=== PATIENT | male | born 1935 | race African-American/Black ===

== ENCOUNTER 2018-05-08 07:53 | Inpatient (IN) | payer MEDICARE, OTHER ==
[~2018-05-08] VITALS: Ht 172.7 cm; Wt 59.0 kg
[~2018-05-08 07:53] MED LIST: INSU100C6 SQ; LEVVL SQ
[2018-05-08] MEDS ORDERED: SODIUM CHLORIDE 0.9% 500 ML IV ONE (08:35)
[2018-05-08 08:55] LABS: BASOPHILS % 0.7 % (0.0-2.0); EOSINOPHILS % 5.1 % (0.0-5.0); HEMATOCRIT. 35.1 % (42.0-52.0); HEMOGLOBIN. 10.9 g/dL (14.0-18.0); LYMPHOCYTES % 11.8 % (20.0-50.0); MEAN CORPUSCULAR HEMOGLOBIN 23.8 pg (28.0-32.0); MEAN CORPUSCULAR VOLUME 76.8 fL (80.0-94.0); MEAN PLATELET VOLUME 8.7 fl (7.4-10.4); MONOCYTES % 5.9 % (2.0-8.0); NEUTROPHILS % 76.5 % (40.0-76.0); PLATELET 364 x1000/uL (130-400); RED BLOOD CELL COUNT 4.57 mill/uL (4.7-6.1); RED CELL DISTRIBUTION WIDTH 15.6 % (11.6-14.6)
[2018-05-08 09:01] LABS: CHLORIDE 92 mEq/L (98-107)
[2018-05-08 09:03] LABS: PROTHROMBIN TIME 10.8 sec (9.4-11.6)
[2018-05-08] MEDS ORDERED: SODIUM CHLORIDE 0.9% 1,000 ML IV ONE (10:15)
[2018-05-08] MEDS ORDERED: IOHEXOL-300 100 ML BOTTLE ONE (13:15)
[2018-05-08 13:16] LABS: TOTAL IRON BINDING CAPACITY 214 ug/dL (250-450)
[2018-05-08 17:30] VITALS: BP 136/56
[2018-05-08] MEDS ORDERED: ONDANSETRON HCL 4MG/2ML VIAL IV PRN (18:00)
[2018-05-08] MEDS ORDERED: HYDROCODONE/ACETAMINOPHEN 5/325MG TABLET PO PRN (18:00)
[2018-05-08] MEDS ORDERED: DIPHENHYDRAMINE 50MG/ML VIAL IV PRN (18:00)
[2018-05-08] MEDS ORDERED: DEXTROSE 50% WATER 50ML SYRINGE IV PRN ×2 (18:00→18:15)
[2018-05-08] MEDS ORDERED: ACETAMINOPHEN 650MG SUPP PR PRN (18:00)
[2018-05-08] MEDS ORDERED: CLONIDINE 0.1MG TABLET PO PRN (18:00)
[2018-05-08] MEDS ORDERED: MAGNESIUM/ALUMINUM HYDROXIDE/SIMETHICONE 30ML UDC PO PRN (18:00)
[2018-05-08] MEDS ORDERED: IPRATROPIUM/ALBUTEROL 0.5-3(2.5)MG/3ML NEB INH PRN (18:00)
[2018-05-08] MEDS ORDERED: ACETAMINOPHEN 325MG TABLET PO PRN (18:00)
[2018-05-08] MEDS ORDERED: NA PHOS,M-B/NA PHOS,DI-BA ENEMA 118ML PR PRN (18:00)
[2018-05-08] MEDS: INSULIN LISPRO 100 UNITS/ML SUBCUT SCH ×2 (18:59→22:14)
[2018-05-08 20:00] VITALS: BP 172/61
[2018-05-08] MEDS: SODIUM CHLORIDE 0.9% 1,000 ML IV SCH (20:32)
[2018-05-08] MEDS ORDERED: INSULIN LISPRO 100 UNITS/ML SUBCUT SCH ×2 (21:00)
[2018-05-08] MEDS ORDERED: BLOOD SUGAR DIAGNOSTIC STRIP TEST SCH (21:00)
[2018-05-08] MEDS: BLOOD SUGAR DIAGNOSTIC STRIP TEST SCH (21:00)
[2018-05-08] MEDS: LEVOFLOXACIN 500MG PREMIX 100 ML IV SCH (22:15)
[2018-05-08 23:11] LABS: CLARITY URINE CLEAR (CLEAR); COLOR URINE YELLOW (YELLOW); KETONES URINE TRACE (NEGATIVE); LEUKOCYTE ESTERASE URINE NEGATIVE (NEGATIVE); NITRITE URINE NEGATIVE (NEGATIVE); OCCULT BLOOD URINE NEGATIVE (NEGATIVE); PROTEIN URINE NEGATIVE (NEGATIVE); SPECIFIC GRAVITY URINE 1.033 (1.005-1.030); UROBILINOGEN URINE 0.2 E.U./dL (0.2-1.0)
[2018-05-08 23:22] LABS: *AMPHETAMINES SCREEN URINE NEGATIVE (NEGATIVE); *BARBITURATES SCREEN URINE NEGATIVE (NEGATIVE); *BENZODIAZEPINES SCREEN URINE NEGATIVE (NEGATIVE); *COCAINE SCREEN URINE NEGATIVE (NEGATIVE); METHADONE URINE SCREEN NEGATIVE (NEGATIVE); OPIATES URINE SCREEN NEGATIVE (NEGATIVE); PHENCYCLIDINE URINE SCREEN NEGATIVE (NEGATIVE)
[2018-05-08 23:23] LABS: CANNABINOID URINE SCREEN NEGATIVE (NEGATIVE)
[2018-05-09] VITALS (19 sets, daily range): BP systolic 134–167; BP diastolic 43–83
[2018-05-09] MEDS: BLOOD SUGAR DIAGNOSTIC STRIP TEST SCH ×4 (06:09→21:36)
[2018-05-09 06:54] LABS: BASOPHILS % 0.4 % (0.0-2.0); EOSINOPHILS % 6.3 % (0.0-5.0); HEMATOCRIT. 28.6 % (42.0-52.0); HEMOGLOBIN. 9.1 g/dL (14.0-18.0); LYMPHOCYTES % 14.5 % (20.0-50.0); MEAN CORPUSCULAR HEMOGLOBIN 23.9 pg (28.0-32.0); MONOCYTES % 6.5 % (2.0-8.0); NEUTROPHILS % 72.3 % (40.0-76.0); PLATELET 331 x1000/uL (130-400); RED BLOOD CELL COUNT 3.81 mill/uL (4.7-6.1); RED CELL DISTRIBUTION WIDTH 15.1 % (11.6-14.6)
[2018-05-09 07:04] LABS: CHLORIDE 98 mEq/L (98-107)
[2018-05-09] MEDS: INSULIN LISPRO 100 UNITS/ML SUBCUT SCH ×4 (07:15→21:48)
[2018-05-09 07:32] LABS: HDL CHOLESTEROL 43 mg/dL (40-59)
[2018-05-09 07:33] LABS: LDL CHOLESTEROL 124 mg/dL (5-100)
[2018-05-09] MEDS ORDERED: LIDOCAINE HCL 1% 20ML VIAL (Pyxis) INJ ONE (10:54)
[2018-05-09] MEDS ORDERED: SODIUM BICARBONATE 4% (2.4MEQ) 5ML VIAL IV ONE (10:55)
[2018-05-09] MEDS ORDERED: FENTANYL CITRATE/PF 50MCG/ML 2ML VIAL ONE (10:56)
[2018-05-09] MEDS ORDERED: FENTANYL CITRATE/PF 50MCG/ML 2ML VIAL IV SCH (11:45)
[2018-05-09] MEDS: SODIUM CHLORIDE 0.9% 1,000 ML IV SCH (13:08)
[2018-05-09] MEDS ORDERED: INSULIN GLARGINE UD 100 UNITS/ML SYR SUBCUT SCH ×2 (14:00→22:00)
[2018-05-09 14:35] LABS: BG BASE EXCESS 1.5 mmol/L (-2.0-2.0); BG CARBOXYHEMOGLOBIN 0.8 % (0.5-1.5); BG DEOXYHEMOGLOBIN 3.9 % (0.0-5.0); BG FRACTION INSPIRED OXYGEN 21; BG HCO3 ACT 25.8 mmol/L (22.0-26.0); BG METHEMOGLOBIN 0.3 % (0.0-1.5); BG OXYGEN SATURATION 96.1 % (92.0-98.5); BG PCO2 39.8 mmHg (35.0-45.0); BG PO2 85.4 mmHg (75.0-100.0); BG SAMPLE SITE RIGHT BRACHIAL; BG TOTAL HEMOGLOBIN 10.2 g/dL (12.0-18.0); BG VENT MODE ROOM AIR
[2018-05-09] MEDS ORDERED: INSULIN LISPRO 100 UNITS/ML SUBCUT NR ×3 (17:00→20:00)
[2018-05-10] VITALS: BP 130/49
[2018-05-10] MEDS: SODIUM CHLORIDE 0.9% 1,000 ML IV SCH (01:47)
[2018-05-10 04:00] VITALS: BP 140/48
[2018-05-10] MEDS: BLOOD SUGAR DIAGNOSTIC STRIP TEST SCH ×3 (05:54→17:36)
[2018-05-10 07:03] LABS: CHLORIDE 103 mEq/L (98-107)
[2018-05-10 07:14] LABS: HEMATOCRIT 29.5 % (42.0-52.0); HEMOGLOBIN 9.5 g/dL (14.0-18.0); MEAN CORPUSCULAR VOLUME 74.6 fL (80.0-94.0); PLATELET 328 x1000/uL (130-400); RED BLOOD CELL COUNT 3.95 mill/uL (4.7-6.1); RED CELL DISTRIBUTION WIDTH 15.2 % (11.6-14.6)
[2018-05-10] MEDS: INSULIN LISPRO 100 UNITS/ML SUBCUT SCH ×3 (07:15→17:39)
[2018-05-10 08:00] VITALS: BP 161/58
[2018-05-10] MEDS: LEVOFLOXACIN 500MG PREMIX 100 ML IV SCH (08:35)
[2018-05-10 12:11] VITALS: BP 159/56
[2018-05-10 16:33] VITALS: BP 108/77
[2018-05-10 16:38] VITALS: BP 108/77
== END 2018-05-10 18:10 | disposition home or self-care (01) | DRG 180 ==
LOC: ER 07:53 → INTOOBSV 12:27 → 5WST 12:27 → OBSVTOIN 12:27 → ENRESERV 14:14 → SUPCPDRO 14:27
PROVIDERS: ADMIT Internal Medicine; ATTEND Internal Medicine
PROC: 0BBC3ZX Excision of Right Upper Lung Lobe, Percutaneous Approach, Diagnostic (ICD-10-PCS; principal; 2018-05-09)
DX: C34.11 Malignant neoplasm of upper lobe, right bronchus or lung (principal); E43 Unspecified severe protein-calorie malnutrition; E87.1 Hypo-osmolality and hyponatremia; I50.32 Chronic diastolic (congestive) heart failure; N39.0 Urinary tract infection, site not specified; Z68.1 Body mass index [BMI] 19.9 or less, adult; E11.40 Type 2 diabetes mellitus with diabetic neuropathy, unspecified; E11.649 Type 2 diabetes mellitus with hypoglycemia without coma; E11.65 Type 2 diabetes mellitus with hyperglycemia; E86.0 Dehydration; R33.9 Retention of urine, unspecified; I11.0 Hypertensive heart disease with heart failure; R62.7 Adult failure to thrive; Z91.19 Patient's noncompliance with other medical treatment and regimen; Z89.612 Acquired absence of left leg above knee; Z89.611 Acquired absence of right leg above knee; Z79.4 Long term (current) use of insulin; Z87.891 Personal history of nicotine dependence
CPT/HCPCS: 32405; 36415; 36600; 71045; 71260; 74176; 77012; 80048; 80053; 80061; 80305; 81003; 82375; 82805; 82962; 83036; 83540; 83550; 83880; 83930; 84145; 84443; 84484; 85025; 85027; 85610; 87040; 87086; 88305; 93005; 93306; 93970; 96360; 96361; 99285; A6261; C1893; J1815; J1956; J3010; J3490; J7030; J7040; Q9967; A4315

== ENCOUNTER 2018-07-11 23:11 | Inpatient (IN) | payer OTHER ==
[~2018-07-11] VITALS: Ht 172.7 cm; Wt 57.9 kg
[2018-07-11] MEDS ORDERED: DEXTROSE 50% WATER 50ML SYRINGE IV ONE ×2 (23:19→23:22)
[2018-07-11] MEDS ORDERED: SODIUM CHLORIDE 0.9% 1,000 ML IV ONE (23:20)
[2018-07-11 23:59] LABS: HEMATOCRIT. 31.4 % (42.0-52.0); MEAN CORPUSCULAR VOLUME 75.6 fL (80.0-94.0); MEAN PLATELET VOLUME 8.4 fl (7.4-10.4); PLATELET 339 x1000/uL (130-400); RED BLOOD CELL COUNT 4.15 mill/uL (4.7-6.1); RED CELL DISTRIBUTION WIDTH 15.9 % (11.6-14.6)
[2018-07-12] VITALS (8 sets, daily range): BP systolic 132–165; BP diastolic 39–80
[2018-07-12 00:06] LABS: CHLORIDE 94 mEq/L (98-107)
[2018-07-12 00:09] LABS: INR 1.1; PROTHROMBIN TIME 10.6 sec (9.1-11.1)
[2018-07-12 00:12] LABS: CLARITY URINE CLOUDY (CLEAR); COLOR URINE YELLOW (YELLOW); KETONES URINE NEGATIVE (NEGATIVE); LEUKOCYTE ESTERASE URINE 2+ (NEGATIVE); NITRITE URINE POSITIVE (NEGATIVE); OCCULT BLOOD URINE TRACE (NEGATIVE); PH URINE 5.5 (4.5-8.0); PROTEIN URINE TRACE (NEGATIVE); SPECIFIC GRAVITY URINE 1.021 (1.005-1.030)
[2018-07-12] MEDS ORDERED: SODIUM CHLORIDE 0.9% 1,000 ML IV ONE ×2 (00:27→02:54)
[2018-07-12] MEDS ORDERED: LEVOFLOXACIN 750MG PREMIX 150 ML IV ONE (00:30)
[2018-07-12] MEDS ORDERED: DEXTROSE 50% WATER 50ML SYRINGE IV ONE ×3 (02:00→08:46)
[2018-07-12 02:03] LABS: ATYPICAL LYMPHOCYTES 1; PLATELET ESTIMATE NORMAL
[2018-07-12] MEDS ORDERED: DEXTROSE 50% WATER 50ML SYRINGE IV PRN ×2 (10:15)
[2018-07-12] MEDS ORDERED: HYDROCODONE/ACETAMINOPHEN 5/325MG TABLET PO PRN (10:15)
[2018-07-12] MEDS ORDERED: IPRATROPIUM/ALBUTEROL 0.5-3(2.5)MG/3ML NEB HHN PRN (10:15)
[2018-07-12] MEDS ORDERED: ONDANSETRON 4MG ODT PO PRN (10:15)
[2018-07-12] MEDS ORDERED: ACETAMINOPHEN 650MG SUPP PR PRN (10:15)
[2018-07-12] MEDS ORDERED: DEXT 5%/0.9% NACL 1,000 ML IV SCH (10:15)
[2018-07-12] MEDS ORDERED: BLOOD SUGAR DIAGNOSTIC STRIP TEST SCH (10:15)
[2018-07-12] MEDS ORDERED: ACETAMINOPHEN 325MG TABLET PO PRN ×2 (10:15)
[2018-07-12 11:32] LABS: BG DEOXYHEMOGLOBIN 3.6 % (0.0-5.0); BG FRACTION INSPIRED OXYGEN 21; BG HCO3 ACT 23.4 mmol/L (22.0-26.0); BG METHEMOGLOBIN 0.3 % (0.0-1.5); BG OXYGEN SATURATION 96.4 % (92.0-98.5); BG OXYHEMOGLOBIN 96.1 % (94.0-97.0); BG PCO2 37.6 mmHg (35.0-45.0); BG PH 7.412 (7.350-7.450); BG PO2 86.3 mmHg (75.0-100.0); BG SAMPLE SITE LEFT BRACHIAL; BG TOTAL HEMOGLOBIN 9.4 g/dL (12.0-18.0); BG VENT MODE ROOM AIR
[2018-07-12 12:04] LABS: HEMATOCRIT. 28.9 % (42.0-52.0); HEMOGLOBIN. 9.1 g/dL (14.0-18.0); MEAN CORPUSCULAR HEMOGLOBIN 23.6 pg (28.0-32.0); MEAN CORPUSCULAR VOLUME 75.3 fL (80.0-94.0); MEAN PLATELET VOLUME 8.6 fl (7.4-10.4); PLATELET 282 x1000/uL (130-400); RED BLOOD CELL COUNT 3.84 mill/uL (4.7-6.1); RED CELL DISTRIBUTION WIDTH 15.9 % (11.6-14.6)
[2018-07-12] MEDS: BLOOD SUGAR DIAGNOSTIC STRIP TEST SCH ×3 (12:27→21:07)
[2018-07-12 12:45] LABS: CHLORIDE 106 mEq/L (98-107)
[2018-07-12 12:53] LABS: LDL CHOLESTEROL 104 mg/dL (5-100); PLATELET ESTIMATE NORMAL
[2018-07-12 12:54] LABS: HDL CHOLESTEROL 59 mg/dL (40-59)
[2018-07-12] MEDS: INSULIN LISPRO 100 UNITS/ML SUBCUT SCH ×2 (18:18→21:11)
[2018-07-12] MEDS: LEVOFLOXACIN 500MG PREMIX 100 ML IV SCH (22:19)
[2018-07-13] VITALS (12 sets, daily range): BP systolic 92–159; BP diastolic 34–77
[2018-07-13 06:29] LABS: HEMATOCRIT 25.2 % (42.0-52.0); HEMOGLOBIN 8.2 g/dL (14.0-18.0); MEAN CORPUSCULAR HEMOGLOBIN 24.5 pg (28.0-32.0); MEAN CORPUSCULAR VOLUME 75.3 fL (80.0-94.0); PLATELET 271 x1000/uL (130-400); RED BLOOD CELL COUNT 3.35 mill/uL (4.7-6.1); RED CELL DISTRIBUTION WIDTH 15.7 % (11.6-14.6)
[2018-07-13 06:36] LABS: CHLORIDE 104 mEq/L (98-107)
[2018-07-13] MEDS: BLOOD SUGAR DIAGNOSTIC STRIP TEST SCH ×4 (07:25→20:45)
[2018-07-13] MEDS: INSULIN LISPRO 100 UNITS/ML SUBCUT SCH ×4 (08:37→20:45)
[2018-07-13] MEDS ORDERED: LIDOCAINE HCL 1% 20ML VIAL (Pyxis) INJ INFIL NR (15:11)
[2018-07-13] MEDS: LEVOFLOXACIN 500MG PREMIX 100 ML IV SCH (23:43)
[2018-07-14] VITALS (12 sets, daily range): BP systolic 115–165; BP diastolic 57–98
[2018-07-14 07:09] LABS: HEMATOCRIT. 25.5 % (42.0-52.0); HEMOGLOBIN. 8.3 g/dL (14.0-18.0); MEAN CORPUSCULAR HEMOGLOBIN 24.3 pg (28.0-32.0); MEAN CORPUSCULAR VOLUME 74.6 fL (80.0-94.0); PLATELET 280 x1000/uL (130-400); RED BLOOD CELL COUNT 3.42 mill/uL (4.7-6.1); RED CELL DISTRIBUTION WIDTH 15.9 % (11.6-14.6)
[2018-07-14 07:18] LABS: CHLORIDE 100 mEq/L (98-107)
[2018-07-14] MEDS: BLOOD SUGAR DIAGNOSTIC STRIP TEST SCH ×4 (08:12→20:05)
[2018-07-14 08:39] LABS: PLATELET ESTIMATE NORMAL
[2018-07-14] MEDS: INSULIN LISPRO 100 UNITS/ML SUBCUT SCH ×4 (09:04→20:12)
[2018-07-14] MEDS ORDERED: METOPROLOL TARTRATE 25MG TABLET PO NR (18:30)
[2018-07-14] MEDS: METOPROLOL TARTRATE 25MG TABLET PO SCH (20:11)
[2018-07-14] MEDS: LEVOFLOXACIN 500MG PREMIX 100 ML IV SCH (22:03)
[2018-07-15] VITALS (10 sets, daily range): BP systolic 114–150; BP diastolic 53–113
[2018-07-15] MEDS: BLOOD SUGAR DIAGNOSTIC STRIP TEST SCH ×2 (07:57→12:47)
[2018-07-15] MEDS: METOPROLOL TARTRATE 25MG TABLET PO SCH (08:31)
[2018-07-15] MEDS: INSULIN LISPRO 100 UNITS/ML SUBCUT SCH (08:32)
[2018-07-15] MEDS ORDERED: INSULIN GLARGINE UD 100 UNITS/ML SYR SUBCUT NR (12:30)
[2018-07-15] MEDS ORDERED: INSULIN LISPRO 100 UNITS/ML SUBCUT SCH (13:00)
[2018-07-15] MEDS ORDERED: LEVOFLOXACIN 500MG TABLET PO SCH (21:00)
== END 2018-07-15 17:40 | disposition home health service (06) | DRG 637 ==
LOC: ER 23:11 → 5EST 07-12 00:34 → EDBEDREQTM 07-12 00:36 → EDBEDREQ 07-12 00:36 → CANRESERV 07-12 03:35 → ENRESERV 07-12 03:35
PROVIDERS: ADMIT Internal Medicine; ATTEND Internal Medicine
DX: E11.649 Type 2 diabetes mellitus with hypoglycemia without coma (principal); G93.41 Metabolic encephalopathy; N39.0 Urinary tract infection, site not specified; C34.11 Malignant neoplasm of upper lobe, right bronchus or lung; D64.9 Anemia, unspecified; E11.40 Type 2 diabetes mellitus with diabetic neuropathy, unspecified; I10 Essential (primary) hypertension; N31.9 Neuromuscular dysfunction of bladder, unspecified; B96.4 Proteus (mirabilis) (morganii) as the cause of diseases classified elsewhere; R00.0 Tachycardia, unspecified; Z79.4 Long term (current) use of insulin; Z91.19 Patient's noncompliance with other medical treatment and regimen; Z92.21 Personal history of antineoplastic chemotherapy; Z89.612 Acquired absence of left leg above knee; Z89.511 Acquired absence of right leg below knee
CPT/HCPCS: 36415; 36600; 71045; 80048; 80053; 80061; 81003; 82375; 82805; 82962; 83036; 83605; 84443; 85025; 85027; 85610; 87040; 87077; 87086; 87186; 93005; 96361; 96365; 96366; 96375; 99291; J1815; J1956; J7030; J7042

== ENCOUNTER 2018-08-28 19:07 | Inpatient (IN) | payer OTHER ==
[~2018-08-28] VITALS: Ht 172.7 cm; Wt 50.3 kg
[2018-08-28] MEDS ORDERED: SODIUM CHLORIDE 0.9% 1,000 ML IV ONE (19:36)
[2018-08-28] MEDS ORDERED: DILTIAZEM HCL 180MG CAPSULE CD 24HR PO ONE ×2 (20:00→21:15)
[2018-08-28] MEDS ORDERED: DILTIAZEM HCL 5MG/ML 5ML VIAL IV NR (20:15)
[2018-08-28 20:49] LABS: HEMATOCRIT. 24.2 % (42.0-52.0); HEMOGLOBIN. 7.8 g/dL (14.0-18.0); MEAN CORPUSCULAR HEMOGLOBIN 23.4 pg (28.0-32.0); MEAN CORPUSCULAR VOLUME 72.3 fL (80.0-94.0); MEAN PLATELET VOLUME 7.6 fl (7.4-10.4); PLATELET 550 x1000/uL (130-400); RED BLOOD CELL COUNT 3.35 mill/uL (4.7-6.1); RED CELL DISTRIBUTION WIDTH 17.8 % (11.6-14.6)
[2018-08-28 20:56] LABS: CHLORIDE 105 mEq/L (98-107)
[2018-08-28] MEDS ORDERED: VERAPAMIL HCL 2.5 MG/1 ML 2ML VIAL IV ONE (21:15)
[2018-08-28] MEDS ORDERED: ASPIRIN 81MG TABLET PO ONE (21:30)
[2018-08-28] MEDS ORDERED: ENOXAPARIN 80MG/0.8ML SYR SUBCUT ONE (21:30)
[2018-08-28 21:46] LABS: NUCLEATED RED BLOOD CELLS 1 /100 WBC; PLATELET ESTIMATE INCREASED
[2018-08-28] MEDS ORDERED: DEXT 5% WATER 100 ML IV ONE (22:00)
[2018-08-28] MEDS ORDERED: DEXTROSE 50% WATER 50ML SYRINGE IV ONE (22:00)
[2018-08-28 22:45] VITALS: BP_SYST 100; BP_DIAS 53; BP_DIAS 57
[2018-08-28] MEDS ORDERED: SODIUM CHLORIDE 0.45% 1,000 ML IV SCH (23:45)
[2018-08-28] MEDS ORDERED: HYDROCODONE/ACETAMINOPHEN 5/325MG TABLET PO PRN (23:45)
[2018-08-28] MEDS ORDERED: TEMAZEPAM 15MG CAPSULE PO PRN (23:45)
[2018-08-29] VITALS (14 sets, daily range): BP systolic 97–130; BP diastolic 46–69
[2018-08-29] MEDS ORDERED: DEXTROSE 50% WATER 50ML SYRINGE IV PRN (00:15)
[2018-08-29] MEDS: INSULIN LISPRO 100 UNITS/ML SUBCUT SCH ×4 (02:00→16:46)
[2018-08-29] MEDS ORDERED: PANTOPRAZOLE 40MG DR TABLET PO SCH (06:50)
[2018-08-29] MEDS ORDERED: BLOOD SUGAR DIAGNOSTIC STRIP TEST SCH (06:50)
[2018-08-29] MEDS: BLOOD SUGAR DIAGNOSTIC STRIP TEST SCH ×3 (06:51→12:06)
[2018-08-29 08:08] LABS: CHLORIDE 105 mEq/L (98-107)
[2018-08-29] MEDS ORDERED: INFLUENZA VIRUS VACCINE(AFLURIA) 0.5ML SYR IM ONE (09:00)
[2018-08-29] MEDS ORDERED: ENOXAPARIN 30MG/0.3ML SYR SUBCUT SCH (09:00)
[2018-08-29] MEDS ORDERED: PNEUMOCOCCAL 23-VAL P-SAC VAC 0.5 ML IM ONE (09:00)
[2018-08-29] MEDS ORDERED: ASPIRIN 81MG TABLET PO SCH (09:00)
[2018-08-29] MEDS ORDERED: DEXT 5%/0.45% NACL 1000ML 1,000 ML IV SCH (10:00)
[2018-08-29 10:16] LABS: MEAN CORPUSCULAR HEMOGLOBIN 23.4 pg (28.0-32.0); MEAN CORPUSCULAR VOLUME 71.3 fL (80.0-94.0); PLATELET 508 x1000/uL (130-400); RED BLOOD CELL COUNT 2.92 mill/uL (4.7-6.1); RED CELL DISTRIBUTION WIDTH 17.9 % (11.6-14.6)
[2018-08-29 10:30] LABS: HEMATOCRIT 20.8 % (42.0-52.0); HEMOGLOBIN 6.8 g/dL (14.0-18.0)
[2018-08-29] MEDS ORDERED: METOPROLOL TARTRATE 25MG TABLET PO SCH (13:10)
[2018-08-29 14:15] LABS: CHLORIDE 107 mEq/L (98-107)
[2018-08-29] MEDS ORDERED: SODIUM BICARBONATE 7.5% 0.9 MEQ/ML 50ML SYR IV ONE (15:43)
[2018-08-29] MEDS ORDERED: EPINEPHRINE 0.1MG/ML (1:10,000) 10ML SYR ONE (15:43)
[2018-08-29 17:39] LABS: HEMATOCRIT 22.7 % (42.0-52.0); HEMOGLOBIN 7.2 g/dL (14.0-18.0); MEAN CORPUSCULAR HEMOGLOBIN 23.2 pg (28.0-32.0); MEAN CORPUSCULAR VOLUME 72.8 fL (80.0-94.0); PLATELET 555 x1000/uL (130-400); RED BLOOD CELL COUNT 3.12 mill/uL (4.7-6.1)
[2018-08-29] MEDS ORDERED: LEVOFLOXACIN 250MG PREMIX 50 ML IV SCH (18:00)
[2018-08-29] MEDS ORDERED: LEVOFLOXACIN 500MG PREMIX 100 ML IV NR (18:00)
[2018-08-30] MEDS ORDERED: LEVOFLOXACIN 250MG PREMIX 50 ML IV SCH (18:00)
== END 2018-08-29 20:26 | disposition expired | DRG 643 ==
LOC: ER 19:52 → EDBEDREQSVC 21:05 → EDBEDREQTM 21:05 → EDBEDREQ 21:05 → ENRESERV 21:21 → 3WST 21:27
PROVIDERS: ADMIT Internal Medicine; ATTEND Internal Medicine
PROC: 5A12012 Performance of Cardiac Output, Single, Manual (ICD-10-PCS; principal; 2018-08-29)
DX: E16.0 Drug-induced hypoglycemia without coma (principal); I21.4 Non-ST elevation (NSTEMI) myocardial infarction; I47.1 Supraventricular tachycardia; C34.91 Malignant neoplasm of unspecified part of right bronchus or lung; D64.9 Anemia, unspecified; E11.51 Type 2 diabetes mellitus with diabetic peripheral angiopathy without gangrene; I10 Essential (primary) hypertension; I48.91 Unspecified atrial fibrillation; I46.9 Cardiac arrest, cause unspecified; Z89.612 Acquired absence of left leg above knee; Z89.611 Acquired absence of right leg above knee; Z83.3 Family history of diabetes mellitus; Z82.49 Family history of ischemic heart disease and other diseases of the circulatory system; T38.3X5A Adverse effect of insulin and oral hypoglycemic [antidiabetic] drugs, initial encounter; E11.69 Type 2 diabetes mellitus with other specified complication
CPT/HCPCS: 36415; 71045; 80048; 82962; 84484; 85027; 86850; 86900; 86920; 90686; 90732; 92950; 93005; 96361; 96365; 96375; 96376; 99291; A6261; J1650; J1815; J1956; J3490; J7030; J7042; J7050; J7060